=== PATIENT | male | born 1990 | race Caucasian/White ===

== ENCOUNTER 2017-02-16 01:20 | Inpatient (IN) ==
[2017-02-16 01:59] LABS: Bilirubin,Urine Negative (Negative); Blood,Urine Small (Negative); Clarity,Urine Clear (Clear); Color,Urine Yellow (Yellow); Glucose,Urine (UA) Normal (Normal); Ketones,Urine Negative (Negative); Leukocyte Esterase,Urine Negative (Negative); Nitrite,Urine Negative (Negative); PH,Urine 7.5 pH Units (5.0-8.0); Protein,Urine Negative (Neg-Trace); Specific Gravity,Urine 1.022 (1.010-1.025); Urobilinogen,Urine Normal (Normal)
[2017-02-16 02:02] LABS: Bacteria,Urine None Seen per hpf (None-Few); RBC,Urine 0-3 per hpf (0-3); Squamous Epithelial Cell,Urine Few per lpf (None-Few); WBC,Urine 0-3 per hpf (0-3)
[2017-02-16 02:04] LABS: Hyaline Casts,Urine Few per lpf (None-Few)
[2017-02-16 02:06] LABS: Amphetamine Screen,Urine Negative ng/mL (Cutoff=1000); Barbiturate Screen,Urine Negative ng/mL (Cutoff=200); Benzodiazepines Screen,Urine Negative ng/mL (Cutoff=200); Cannabinoid Screen,Urine Positive ng/mL (Cutoff = 50); Cocaine Screen,Urine Negative ng/mL (Cutoff= 300); Opiate Screen,Urine Negative ng/mL (Cutoff=300); Phencyclidine Screen,Urine Negative ng/mL (Cutoff=25)
--- NOTE | 2017-02-16 02:09 | Emergency Department Note ---
START Narrative - START START: I examined this patient and my medical decision-making was reviewed with the [employer]ER/PA/Advanced Practice Nurse/Resident Physician. I agree with the documented findings, disposition and treatment plan as described except to the extent set forth below. ED attending note: Patient seen with emergency medicine resident Dr. Rudolph. Please see a copy of his note for details of the H&P, evaluation, management and disposition of this patient. We independently had [id number] contact with the patient Briefly: 26-year-old male history of depression not on meds denies any substances tonight suicidal ideation without discrete plan. Physical examination is benign. Patient cooperative. Patient will undergo medical clearance and evaluation by mental health services for further evaluation and disposition. Patient stable
--- NOTE | 2017-02-16 02:17 | Emergency Department Note ---
Disposition Clinical Impression: Suicidal ideation Disposition: Admitted As Inpatient Condition: Fair Time of Disposition: 06:38 Psych HPI - General Chief Complaint: ED Psychiatric Symptoms Stated Complaint: SI Time Seen by Provider: 02/16/17 02:15 Source: patient Mode of arrival: EMS Limitations: no limitations Nursing Notes Reviewed: Yes Vital Signs Reviewed: Yes - History of Present Illness HPI Narrative: A 26-year-old male with history of depression and previous psychiatric admissions and suicidal ideation with attempts arrives [facility] emergency department complaining of suicidal ideation this evening stating that he was walking to his house because he was tired of the world and was going to shoot himself in the head. The patient denies any other complaints including delusions, paranoia, homicidal ideations. The patient has had previous psychiatric admissions. Patient denies any substance abuse tonight. Pt complaint: suicidal ideation Duration: constant, changing over time, getting worse History of similar episodes: Yes Improves with: none Worsens with: none Alleged intoxication: No Associated Psychiatric Symptoms: suicidal ideation Associated symptoms: Reports: denies other symptoms Traumatic symptoms: denies traumatic injury Treatments prior to arrival: none Self harm or harm to others: admits thoughts of self harm, has plan - Related Data Previous Rx's Medication Instructions Recorded Diazepam [Valium] 5 mg PO TID #10 tablet 06/25/16 Acetaminophen [Tylenol] 1,000 mg PO Q6HR #60 tablet 01/22/17 Cyclobenzaprine [Flexeril] 10 mg PO TID #30 tablet 01/22/17 Allergies Allergy/AdvReac Type Severity Reaction Status Date / Time ibuprofen Allergy See Verified 06/25/16 15:01 Comments lorazepam [From Ativan] Allergy Hallucinati Verified 02/16/17 06:33 ng risperidone [From Risperdal] Allergy Swelling Verified 02/16/17 06:33 of Lip/Tongue/Throat Constitutional: Denies: fever, chills, weakness, weight change Eyes: Denies: eye pain, eye discharge, vision change ENT ED: Denies: ear pain, throat pain, dental pain, hearing loss, epistaxis, congestion, dysphagia Cardiovascular: Denies: chest pain, palpitations, dyspnea on exertion, edema, syncope Respiratory: Denies: cough, dyspnea, wheezes, hemoptysis, stridor Gastrointestinal: Denies: abdominal pain, nausea, vomiting, diarrhea, constipation, hematemesis, melena, hematochezia Genitourinary: Denies: urgency, dysuria, frequency, hematuria Musculoskeletal: Denies: back pain, neck pain, arthralgia, myalgia Integumentary: Denies: rash, abrasion, lesions Neurological: Denies: headache, weakness, numbness, paresthesias, confusion, abnormal gait, vertigo Psychiatric: Reports: suicidal thoughts. Denies: anxiety, depression, homicidal thoughts, auditory hallucinations, visual hallucinations Endocrine: Denies: fatigue Hematological/Lymphatic: Denies: easy bleeding, easy bruising Allergic/Immunologic: Denies: facial swelling, urticaria Past Medical History - Past Medical History Attestation: Yes The following information was validated with the patient. Source: patient Medical history: Reports: hypertension, other Surgical history: Reports: non-contributory Psychiatric history: Reports: depression, prior suicide attempt, schizophrenia, previous psychiatric hospitalization, other - Social History Smoking Status: Current every day smoker Smokeless Tobacco Status: No Alcohol use: Reports: none Drug use: Reports: marijuana Physical Exam Physical Exam: General: Patient alert, no acute distress, not lethargic HEENT: Head normal inspection, atraumatic, PERRLA, oropharynx grossly intact and normal, trachea midline, no JVD Chest: Nontraumatic, nontender, normal chest rise CV: RRR with no murmurs, rubs, gallops Respiratory: Lungs clear to auscultation bilaterally, no rales, rhonchi, wheezes. Abdomen: Normal inspection, Normal bowel sounds 4 quadrants, nontender to palpation : Patient deferred Extremities: Normal inspection, full range of motion, appropriate pulses, capillary refill under 2 seconds Neurological: Patient alert and oriented 3, cranial nerves II through XII grossly intact, GCS 15 Skin: Warm, intact, no rashes noted Course Vital Signs Temperature 98.0 F 02/16/17 01:22 Pulse Rate 110 02/16/17 01:22 Respiratory Rate 18 02/16/17 01:22 Blood Pressure 132/72 02/16/17 01:22 O2 Sat by Pulse Oximetry 99 02/16/17 01:22 Temperature 98.4 F 02/16/17 06:32 Pulse Rate 62 02/16/17 06:32 Respiratory Rate 16 02/16/17 06:32 Blood Pressure 114/66 02/16/17 06:32 O2 Sat by Pulse Oximetry 99 02/16/17 05:21 Oxygen Delivery Oxygen Delivery Room Air Psych - Lab Data Result diagrams: 02/16/17 02:30 02/16/17 02:30 Lab Results 02/16/17 02/16/17 02/16/17 Range/Units 01:50 01:52 02:30 WBC 15.0 H (4.3-11.1) K/mcL RBC 5.02 (4.19-5.50) M/mcL Hgb 14.8 (12.9-16.9) g/dL Hct 43.4 (37.5-50.1) % MCV 86.5 (83.0-100.0) fL MCH 29.5 (28.0-33.3) pg MCHC 34.1 (31.6-35.5) g/dL RDW 13.9 (11.5-14.5) % Plt Count 257 (140-400) K/mcL MPV 10.3 (9.4-12.4) fL Immature Gran % 0.3 (0-4) % Seg Neutrophils % 79.8 % Lymphocytes % 13.3 % Monocytes % 6.2 % Eosinophils % 0.2 % Basophils % 0.2 % Neutrophils # 11.9 H (1.6-8.9) K/mcL Lymphocytes # 2.0 (0.6-4.6) K/mcL Monocytes # 0.9 (0.0-1.3) K/mcL Eosinophils # 0.0 (0.0-0.6) K/mcL Basophils # 0.0 (0.0-0.2) K/mcL Sodium (136-145) mEq/L Potassium (3.5-4.5) mEq/L Chloride (98-109) mEq/L Carbon Dioxide (19-29) mEq/L BUN (8-26) mg/dL Creatinine (0.72-1.25) mg/dL Est GFR ( Amer) (> 60) Est GFR (Non-Af Amer) (> 60) BUN/Creatinine Ratio (6-26) Glucose (70-99) mg/dL Calculated Osmolality (280-300) Calcium (8.6-10.8) mg/dL Urine Color Yellow (Yellow) Urine Clarity Clear (Clear) Urine pH 7.5 (5.0-8.0) pH Units Ur Specific [place] 1.022 (1.010-1.025) Urine Protein Negative (Neg-Trace) mg/dL Urine Glucose (UA) Normal (Normal) mg/dL Urine Ketones Negative (Negative) mg/dL Urine Blood Small H (Negative) Urine Nitrite Negative (Negative) Urine Bilirubin Negative (Negative) Urine Urobilinogen Normal (Normal) mg/dL Ur Leukocyte Esterase Negative (Negative) Urine Microscopic RBC 0-3 (0-3) per hpf Urine Microscopic WBC 0-3 (0-3) per hpf Ur Squamous Epith Cells Few (None-Few) per lpf Urine Bacteria None Seen (None-Few) per hpf Hyaline Casts Few (None-Few) per lpf Salicylates (15-30) mg/dL Urine Opiates Screen Negative (Gwbszr=797) ng/mL Acetaminophen (10-30) mcg/mL Ur Barbiturates Screen Negative (Chkxnd=355) ng/mL Ur Phencyclidine Scrn Negative (Cutoff=25) ng/mL Ur Amphetamines Screen Negative (Lyvram=9801) ng/mL U Benzodiazepines Scrn Negative (Aejojk=487) ng/mL Urine Cocaine Screen Negative (Cutoff= 300) ng/mL U Marijuana (THC) Screen Positive H (Cutoff = 50) ng/mL Ethyl Alcohol (0-10) mg/dL 02/16/17 Range/Units 02:30 WBC (4.3-11.1) K/mcL RBC (4.19-5.50) M/mcL Hgb (12.9-16.9) g/dL Hct (37.5-50.1) % MCV (83.0-100.0) fL MCH (28.0-33.3) pg MCHC (31.6-35.5) g/dL RDW (11.5-14.5) % Plt Count (140-400) K/mcL MPV (9.4-12.4) fL Immature Gran % (0-4) % Seg Neutrophils % % Lymphocytes % % Monocytes % % Eosinophils % % Basophils % % Neutrophils # (1.6-8.9) K/mcL Lymphocytes # (0.6-4.6) K/mcL Monocytes # (0.0-1.3) K/mcL Eosinophils # (0.0-0.6) K/mcL Basophils # (0.0-0.2) K/mcL Sodium 139 (136-145) mEq/L Potassium 3.5 (3.5-4.5) mEq/L Chloride 110 H (98-109) mEq/L Carbon Dioxide 18 L (19-29) mEq/L BUN 15 (8-26) mg/dL Creatinine 0.96 (0.72-1.25) mg/dL Est GFR ( Amer) > 60 (> 60) Est GFR (Non-Af Amer) > 60 (> 60) BUN/Creatinine Ratio 16 (6-26) Glucose 76 (70-99) mg/dL Calculated Osmolality 288 (280-300) Calcium 9.6 (8.6-10.8) mg/dL Urine Color (Yellow) Urine Clarity (Clear) Urine pH (5.0-8.0) pH Units Ur Specific [place] (1.010-1.025) Urine Protein (Neg-Trace) mg/dL Urine Glucose (UA) (Normal) mg/dL Urine Ketones (Negative) mg/dL Urine Blood (Negative) Urine Nitrite (Negative) Urine Bilirubin (Negative) Urine Urobilinogen (Normal) mg/dL Ur Leukocyte Esterase (Negative) Urine Microscopic RBC (0-3) per hpf Urine Microscopic WBC (0-3) per hpf Ur Squamous Epith Cells (None-Few) per lpf Urine Bacteria (None-Few) per hpf Hyaline Casts (None-Few) per lpf Salicylates < 5.0 L (15-30) mg/dL Urine Opiates Screen (Osnmbu=277) ng/mL Acetaminophen < 1.0 L (10-30) mcg/mL Ur Barbiturates Screen (Bqxaxo=610) ng/mL Ur Phencyclidine Scrn (Cutoff=25) ng/mL Ur Amphetamines Screen (Topzsd=6886) ng/mL U Benzodiazepines Scrn (Frhqhf=310) ng/mL Urine Cocaine Screen (Cutoff= 300) ng/mL U Marijuana (THC) Screen (Cutoff = 50) ng/mL Ethyl Alcohol < 10 (0-10) mg/dL Psychiatric Medical Clearance - Medical Clearance Checklist Does the patient have a NEW psychiatric condition?: No Any abnormalities indicating possible medical illness?: No Any history of medical issues?: No Medical History: No Social History Section defined Any abnormal vital signs prior to transfer?: No Current Vitals: Last Vital Signs Temp 98.4 F 02/16/17 06:32 Pulse 62 02/16/17 06:32 Resp 16 02/16/17 06:32 BP 114/66 02/16/17 06:32 Pulse Ox 99 02/16/17 05:21 Is the patient intoxicated or cognitively impaired?: No Psychiatric Lab Panel: Drug Levels and Toxicity 02/16/17 02/16/17 01:52 02:30 Urine Opiates Screen Negative Acetaminophen < 1.0 L Ur Barbiturates Screen Negative Ur Phencyclidine Scrn Negative Ur Amphetamines Screen Negative U Benzodiazepines Scrn Negative Urine Cocaine Screen Negative U Marijuana (THC) Screen Positive H Ethyl Alcohol < 10 Any abnormalities on the physical exam?: No Any abnormal labs?: No Abnormal Labs: Abnormal lab results WBC 15.0 K/mcL (4.3-11.1) H 02/16/17 02:30 Neutrophils # 11.9 K/mcL (1.6-8.9) H 02/16/17 02:30 Chloride 110 mEq/L (98-109) H 02/16/17 02:30 Carbon Dioxide 18 mEq/L (19-29) L 02/16/17 02:30 Urine Blood Small (Negative) H 02/16/17 01:50 Salicylates < 5.0 mg/dL (15-30) L 02/16/17 02:30 Acetaminophen < 1.0 mcg/mL (10-30) L 02/16/17 02:30 U Marijuana (THC) Screen Positive ng/mL (Cutoff = 50) H 02/16/17 01:52 Does the patient require durable medical equiptment?: No Is the patient ambulatory?: Yes Is the patient a fall risk?: No Has the patient been medically cleared?: Yes Any acute medical condition require Tx prior to transfer?: No Statement of Medical Clearance: I have evaluated the patient, reviewed diagnostic information, and certify that the patient's medical condition is sufficiently stable that transfer to the psychiatric unit does not pose a significant risk of deterioration.
[2017-02-16 02:44] LABS: Basophils % 0.2 %; Eosinophils % 0.2 %; Hematocrit 43.4 % (37.5-50.1); Hemoglobin 14.8 g/dL (12.9-16.9); Immature Granulocytes % 0.3 % (0-4); Lymphocytes % 13.3 %; Mean Corpuscular HGB Conc 34.1 g/dL (31.6-35.5); Mean Corpuscular Hemoglobin 29.5 pg (28.0-33.3); Mean Corpuscular Volume 86.5 fL (83.0-100.0); Mean Platelet Volume 10.3 fL (9.4-12.4); Monocytes # 0.9 K/mcL (0.0-1.3); Monocytes % 6.2 %; Neutrophils # 11.9 K/mcL (1.6-8.9); Platelet Count 257 K/mcL (140-400); Red Blood Count 5.02 M/mcL (4.19-5.50); Red Cell Distribution Width 13.9 % (11.5-14.5); Segmented Neutrophils % 79.8 %
[2017-02-16 02:59] LABS: Acetaminophen < 1.0 mcg/mL (10-30); BUN/Creatinine Ratio 16 (6-26); Blood Urea Nitrogen 15 mg/dL (8-26); Calcium 9.6 mg/dL (8.6-10.8); Carbon Dioxide 18 mEq/L (19-29); Chloride 110 mEq/L (98-109); Ethanol < 10 mg/dL (0-10); Glucose 76 mg/dL (70-99); Osmolality,Calculated 288 (280-300); Potassium 3.5 mEq/L (3.5-4.5); Salicylate < 5.0 mg/dL (15-30); Sodium 139 mEq/L (136-145); eGFR For African Americans > 60 (> 60); eGFR For Non-African Americans > 60 (> 60)
[2017-02-16] MEDS ORDERED: Haloperidol Lactate 5 MG/ML VIAL IM PRN (06:21)
[2017-02-16] MEDS ORDERED: MOM Conc 10 ML UD.LIQ PO PRN (06:21)
[2017-02-16] MEDS ORDERED: Mag Hydrox/Al Hydrox/Simeth 30 ML UDC PO PRN (06:21)
[2017-02-16] MEDS ORDERED: hydrOXYzine pamoate 25 MG CAPSULE PO PRN (06:21)
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
[2017-02-16] MEDS ORDERED: OLANZapine 5 MG TAB.RAPDIS PO SCH (21:00)
[2017-02-16] MEDS: traZODone 50 MG TABLET PO PRN (21:58)
[2017-02-16] MEDS: Lithium Carbonate ER 300 MG TABLET.ER PO SCH (21:58)
[2017-02-16] MEDS: Acetaminophen 325 MG TABLET PO PRN (21:59)
[2017-02-17] MEDS: Lithium Carbonate ER 300 MG TABLET.ER PO SCH (08:47)
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
[2017-02-17] MEDS: traZODone 50 MG TABLET PO PRN (21:22)
[2017-02-17] MEDS: Lithium Carbonate ER 450 MG TABLET.ER PO SCH (21:22)
[2017-02-17] MEDS: Acetaminophen 325 MG TABLET PO PRN (21:22)
[2017-02-17] MEDS: OLANZapine 10 MG TAB.RAPDIS PO SCH (21:22)
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
[2017-02-18] MEDS: Lithium Carbonate ER 450 MG TABLET.ER PO SCH (21:39)
[2017-02-18] MEDS: OLANZapine 10 MG TAB.RAPDIS PO SCH (21:40)
[2017-02-18] MEDS: Acetaminophen 325 MG TABLET PO PRN (21:46)
[2017-02-19 09:10] LABS: BUN/Creatinine Ratio 14 (6-26); Blood Urea Nitrogen 15 mg/dL (8-26); Calcium 9.3 mg/dL (8.6-10.8); Carbon Dioxide 21 mEq/L (19-29); Chloride 107 mEq/L (98-109); Glucose 86 mg/dL (70-99); Osmolality,Calculated 286 (280-300); Potassium 4.1 mEq/L (3.5-4.5); Sodium 138 mEq/L (136-145); eGFR For African Americans > 60 (> 60); eGFR For Non-African Americans > 60 (> 60)
[2017-02-19 10:02] VITALS: BP 110/66
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
== END 2017-02-19 14:42 | disposition home or self-care (01) | DRG 753 ==
LOC: EMEROO 01:20 → 1ANU 06:17
PROVIDERS: ADMIT Psychiatry & Neurology Psychiatry; ATTEND Psychiatry & Neurology Psychiatry